=== PATIENT | male | born 1980 ===

== ENCOUNTER 2019-09-08 14:57 | Emergency (ER) | payer OTHER ==
[~2019-09-08] VITALS: Ht 177.8 cm; Wt 83.9 kg
[2019-09-08] MEDS ORDERED: CIPRO500 MG PO (17:07)
== END 2019-09-08 18:30 | disposition home or self-care (01) ==
LOC: ER 14:57
DX: S61.222A Laceration with foreign body of right middle finger without damage to nail, initial encounter (principal); W26.8XXA Contact with other sharp object(s), not elsewhere classified, initial encounter; Y93.89 Activity, other specified; Y92.038 Other place in apartment as the place of occurrence of the external cause; Y99.8 Other external cause status

== ENCOUNTER 2019-09-14 12:26 | Emergency (ER) | payer OTHER ==
[~2019-09-14] VITALS: Ht 177.8 cm; Wt 86.2 kg
[~2019-09-14 12:26] MED LIST: CIPRO500 MG PO
== END 2019-09-14 14:31 | disposition home or self-care (01) ==
LOC: ER 12:26
DX: Z48.02 Encounter for removal of sutures (principal)

== ENCOUNTER 2019-09-18 11:38 | Emergency (ER) | payer OTHER ==
[~2019-09-18] VITALS: Ht 177.8 cm; Wt 86.2 kg
== END 2019-09-18 13:01 | disposition home or self-care (01) ==
LOC: ER 11:38
DX: Z48.02 Encounter for removal of sutures (principal)